=== PATIENT | male | born 1980 | race Caucasian/White ===

== ENCOUNTER 2021-11-23 09:46 | Emergency (ER) | payer BC, SELFPAY ==
--- NOTE | ~2021-11-23 | CT_ITS ---
EXAMINATION: CTA BRAIN/CAROTID DATE: 11/23/2021 12:31 INDICATION: Sudden onset headache TECHNIQUE: Computed tomographic angiography (CTA) of the head and neck was performed with 100 mL Omni paque-350 intravenous contrast. Multiplanar reconstructions and maximum intensity projection 3D-recon structions of the carotid arteries and of the intracranial arteries were created by the technologist on a separate workstation. Automated exposure control and iterative reconstruction technique were emp loyed.The dose-length product was 1070.34 mGy-cm. COMPARISON: None. FINDINGS: Carotid arteries: Visualized thoracic aorta is normal in caliber with no atherosclerotic plaque or dissection. No evide nt plaque along the visualized portion of the great vessels arising from the aortic arch There is no evident plaque with 0% stenosis of the left and right carotid bulbs relative to normal distal artery lumen diameter (NASCET criteria). Cervical soft tissues are unremarkable. Minimal cervical spondylosi s. Intracranial arteries There is no hemodynamically significant stenosis in the vertebral, basilar and internal carotid arter ies. Vertebral arteries are codominant. There is some mild variation in the caliber of the basilar an d intracranial vertebral arteries but without evident plaque or mural thickening and is of doubtful c linical significance. There are no aneurysms or dissection identified. Both A1 and P1 segments are p atent. Cerebral arterial arborization appears symmetric. IMPRESSION: 1. No evident atherosclerotic disease with 0% stenosis of the left and right carotid bulbs relative t o normal distal artery lumen diameter (NASCET criteria). 2. Unremarkable cerebral CT angiogram with no significant stenosis, thrombosis, aneurysm or dissectio n. Reviewed, dictated and finalized at location A. RBOAT OPERATOR IMPRESSION: 1. No evident atherosclerotic disease with 0% stenosis of the left and right ca rotid bulbs relative to normal distal artery lumen diameter (NASCET criteria). 2. Unremarkable cerebral CT angiogram with no significant stenosis, thrombosis, aneurysm or dissection.
--- NOTE | ~2021-11-23 | CT_ITS ---
EXAMINATION: CT brain wo con DATE: 11/23/2021 10:25 INDICATION: Headache. Paresthesias. TECHNIQUE: Computed tomography (CT) of the head was performed without intravenous contrast. Sagittal and coronal reconstructions were performed. The mA was adjusted according to patient size. Iterative reconstruction technique was employed. The dose-length product was 605.30 mGy-cm. COMPARISON: None FINDINGS: No acute intracranial hemorrhage, acute infarction or abnormal extra axial fluid collection. Ventricl es are normal and symmetric. No mass/mass effect. The orbits, paranasal sinuses and mastoid air cells are normal. IMPRESSION: 1. Normal head CT. Reviewed, dictated and finalized at location A. UNICATIONS OFFICER IMPRESSION: 1. Normal head CT.
--- NOTE | ~2021-11-23 | XR_ITS ---
EXAMINATION: XR chest 1V DATE: 11/23/2021 10:33 INDICATION: Cough and headache TECHNIQUE: frontal view of the chest was obtained. COMPARISON: None FINDINGS: The lungs are clear with no focal airspace opacities, pulmonary edema, pleural effusion or pneumothor ax. The cardiomediastinal silhouette is normal. Visualized bones and soft tissues are unremarkable. IMPRESSION: 1. No acute cardiopulmonary disease. Reviewed, dictated and finalized at location A. CORD WEAVER
[2021-11-23 09:54] VITALS: BP 163/98; PULSE 72; RESP 16; TEMP 36.7; O2SAT 97
[2021-11-23 10:12] VITALS: BP 140/103; PULSE 74; RESP 14; O2SAT 97
--- NOTE | 2021-11-23 10:13 | ECG_ITS ---
Measurements Intervals [place] Rate: 66 P: 40 FL: 153 QRS: -14 QRSD: 94 T: 1 QT: 377 QTc: 397 Interpretive Statements SINUS RHYTHM WITH SINUS ARRHYTHMIA BORDERLINE ST-T WAVE ABNORMALITY- INFERIOR LEADS BASELINE ARTIFACT- I, II, III, AVR, AVL, AVF BORDERLINE ECG Electronically Signed On 11-23-2021 12:09:44 TICKET PULLER by Addison Arboleda D.O.
[2021-11-23 10:41] VITALS: BP 131/94; PULSE 64; RESP 18; O2SAT 99
[2021-11-23 10:42] LABS: Glucose Point of Care 73 mg/dl (65-105)
--- NOTE | 2021-11-23 10:43 | ED.HA ---
HPI - Headache General Chief Complaint: Headache <ANA Blela Last Filed: 11/23/21 13:04> Stated Complaint: headache <ANA Bella Last Filed: 11/23/21 13:04> Time Seen by Provider: 11/23/21 10:12 <ANA Bella Last Filed: 11/23/21 13:04> Source: patient <ANA Bella Last Filed: 11/23/21 13:04> Mode of arrival: ambulatory <ANA Bella Last Filed: 11/23/21 13:04> Limitations: no limitations <ANA Bella Last Filed: 11/23/21 13:04> History of Present Illness HPI Narrative: This is a 40 year old male that presents to the ER for headache present since yesterday. Reports he coughed and felt a sharp pain in his headache. He continued to have a headache the rest of the day. He took aspirin with some relief. Does have history of headaches, gets them quite frequently, but this one was worse than usual. Reports today he started to feel better and again coughed and had worsening of headache. Reports he had some paresthesias on the left side of his face yesterday. This has resolved. Reports photophobia. He does report he had a recent exposure to coronavirus. Denies any cold symptoms at this time, reports he has chronic problems with cough, especially in the morning. Denies fever, vomiting, current numbness or weakness. <ANA Bella Last Filed: 11/23/21 13:04> Related Data Home Medications: Home Medications Medication Instructions Recorded Confirmed No Home Medications 11/23/21 11/23/21 <ANA Bella Last Filed: 11/23/21 13:04> Allergies/Adverse Reactions: Allergies Allergy/AdvReac Type Severity Reaction Status Date / Time No Known Allergies Allergy Mild Verified 11/23/21 09:58 <ANA Bella Last Filed: 11/23/21 13:04> Review of Systems Review of Systems: CONSTITUTIONAL: Denies fever EYES: Denies visual changes GASTROINTESTINAL: Denies nausea, vomiting SKIN: Denies rash NEUROLOGIC: Reports headache. Denies numbness, or weakness. <Sabiha Mckeon PA-C - Last Filed: 11/23/21 13:04> All systems reviewed & are unremarkable except as noted in HPI and below <Sabiha Mckeon PA-C - Last Filed: 11/23/21 13:04> [facility] Past Medical History Medical History: Medical History (Updated 11/23/21 @ 13:03 by Sabiha Mckeon PA-C) No active medical problems <Sabiha Mckeon PA-C - Last Filed: 11/23/21 13:04> Family History Family History: Family History (Updated 05/17/16 @ 23:21 by DOCTOR UNKNOWN) Mother Patient's mother is in good health Father Patient's father is in good health <Sabiha Mckeon PA-C - Last Filed: 11/23/21 13:04> Social History Social History: Social History Smoking status: Never smoker Alcohol intake: current <Sabiha Mckeon PA-C - Last Filed: 11/23/21 13:04> Exam Narrative: GENERAL: Well-appearing, well-nourished, and in no acute distress. HEAD: Normocephalic, atraumatic. EYES: PERRLA and EOMI. ENT: Nares clear, no rhinorrhea or epistaxis. Mucous membranes moist. Oropharynx without tonsillar hypertrophy exudate or other lesions. Bilateral TMs pearly white non-bulging NECK: Supple. No adenopathy or masses. CHEST: Clear to auscultation. No respiratory distress. No wheezes rales or rhonchi HEART: Regular rate and rhythm. No murmur heard. Normal peripheral pulses. EXTREMITIES: Normal range of motion. No edema. Strength equal in bilateral upper and lower extremities (5/5) SKIN: Warm, dry, no rash. NEURO: No focal deficits. Alert and oriented x3. Cranial nerves II through XII grossly intact. Normal [id number] PSYCH: Normal mood and affect <Sabiha Mckeon PA-C - Last Filed: 11/23/21 13:04> Course MONKEY KEEPER/PA Physician Supervision I did not see this patient nor was the care plan discussed with me. I was available for evaluation and consultation, I agree with the documentation <Juan Akins MD - Last Filed
[2021-11-23 10:52] LABS: Basophils Percent Auto 0.6 % (0.2-1.2); Eosinophils Absolute Auto 0.2 K/mm3 (0-0.3); Eosinophils Percent Auto 2.4 % (0-4.4); Hemoglobin 17.3 g/dL (14.0-18.0); Immature Granulocyte Absolute 0.01 K/mm3 (0.00-0.031); Immature Granulocyte Percent A 0.1 % (0-0.5); Lymphocytes Absolute Auto 2.47 K/mm3 (0.9-3.2); Lymphocytes Percent Auto 35.3 % (18.3-44.2); Mean Corpuscular HGB Conc 33.3 g/dl (32-36); Mean Corpuscular Hemoglobin 28.7 pg (26-34); Mean Corpuscular Volume 86.2 fl (80-100); Mean Platelet Volume 10.2 fl (7.4-10.4); Monocytes Absolute Auto 0.5 K/mm3 (0.1-0.6); Monocytes Percent Auto 6.9 % (2.6-8.5); Neutrophils Absolute Auto 3.8 K/mm3 (1.3-6.7); Neutrophils Percent Auto 54.7 % (45.5-73.1); Platelet Count Result 235 k/mm3 (150-375); Red Blood Count 6.03 M/mm3 (4.6-6.20); Red Cell Distribution Width 13.1 % (11.5-14.5)
[2021-11-23 10:55] LABS: Alanine Aminotransferase 18 U/L (4-50); Albumin Level 4.9 g/dL (3.5-5.1); Alkaline Phosphatase 66 U/L (38-126); Anion Gap 8 mmol/L (8-16); Aspartate Amino Transferase 23 U/L (17-59); Bilirubin,Total 0.6 mg/dL (0.2-1.3); Blood Urea Nitrogen 19 mg/dL (9-20); Carbon Dioxide 26 mmol/L (22-30); Chloride 104 mmol/L (98-107); Estimated CRCL calculation 79 ml/min; Estimated Glomerular Filt Rate > 60; Glucose 116 mg/dL (65-110); Potassium 3.8 mmol/L (3.4-5.0); Sodium 138 mmol/L (137-145)
[2021-11-23 10:56] LABS: INR 0.9; Partial Thromboplastin Time 28.3 SECONDS (22.3-36.8); Prothrombin Time 12.1 Seconds (11.1-14.7)
[2021-11-23] MEDS: SODIUM CHLORIDE 0.9% IV 500 ML 999 ML IV CONT (10:58)
[2021-11-23] MEDS: METOCLOPRAMIDE HCL INJ 10 MG/2 ML VIAL IV PUSH (10:59)
[2021-11-23] MEDS: diphenhydrAMINE HCl INJ 50 MG/ML VIAL 25 MG IV PUSH (10:59)
[2021-11-23 11:07] LABS: Troponin I < 0.012 ng/mL (0.000-0.034)
[2021-11-23 12:15] VITALS: BP 132/83; PULSE 73; RESP 16; O2SAT 97
[2021-11-23 17:23] LABS: SARS-CoV-2 RNA PCR Negative
== END 2021-11-23 13:18 | disposition home or self-care (01) ==
PROVIDERS: Physician Assistant; Emergency Provider Emergency Medicine
DX: R51.9 Headache, unspecified (principal); Z20.822 Contact with and (suspected) exposure to COVID-19
CPT/HCPCS: 36415; 70450; 70496; 70498; 71045; 80053; 82948; 84484; 85025; 85610; 85730; 93005; 96365; 96375; 99284; C9803; J0131; J1200; J2765; J7040; Q9967; U0003; U0005

== ENCOUNTER 2022-05-06 00:38 | Day surgery (SDC) | payer BC, SELFPAY ==
[2022-05-03 14:39] VITALS: BMI 27.3
[2022-05-06 11:48] VITALS: BP 116/96; PULSE 71; RESP 20; TEMP 36.5; O2SAT 98
[2022-05-06] MEDS: LACTATED RINGERS 1,000 ML 150 ML IV CONT (11:53)
--- NOTE | 2022-05-06 12:24 | P.PNAN_ITS ---
Anes - Initial Pre Proc Eval Procedure: Operation Date: 05/06/22 13:00 Proposed Procedures p Esophagogastroduodenoscopy & Colonoscopy - Mo Cervantes MD s [facility] Hemorrhoid Treatment - Mo Cervantes MD Date/Time: 05/06/22 12:24 Surgeon: Mo Cervantes MD Pre Op Diagnosis: heartburn,vomiting, Rectal bleeding, hemorroids Patient Data Age: 41 Gender: M Height: 1.75 m Weight: 85 kg Last Vital Signs Temp 97.7 F 05/06/22 11:48 Pulse 71 05/06/22 11:48 Resp 20 05/06/22 11:48 BP 116/96 H 05/06/22 11:48 Pulse Ox 98 05/06/22 11:48 O2 Del Method Room Air 05/06/22 11:48 Allergies Allergy/AdvReac Type Severity Reaction Status Date / Time No Known Allergies Allergy Mild Verified 05/06/22 11:47 Home Medications Medication Instructions Recorded Confirmed Type omeprazole 20 mg capsule,delayed 20 mg PO DAILY 02/14/22 05/03/22 History release Patient hx anesthesia problems: none Family hx anesthesia problems: none Results Review: All pre-operative results and documents have been reviewed as part of the pre- operative evaluation. [facility] Past Medical History Medical History (Updated 02/14/22 @ 14:52 by DONN Pritchard) Heartburn No active medical problems Rectal bleeding Family History Family History Mother Patient's mother is in good health Father Patient's father is in good health Social History Social History Smoking status: Never smoker Alcohol intake: current Alcohol use details: occasional Substance use: current Other substance usage details: gummies 4x per week Living arrangements: with family Spiritual care concerns: No Anes - Eval Final PreProcedure Day of Procedure 05/06/22 12:24 Patient weight: normal Heart: regular rate and rhythm Lungs: clear to auscultation Airway: Mallampati scale class II Neurological: alert and oriented Last oral intake: >/= 8 hours ASA classification: II Emergent: no Anesthetic plan: proceed Anesthesia type and monitoring: general GIVS and standard monitoring Results Review: All pre-operative results and documents have been reviewed as part of the pre- operative evaluation. Informed Consent: The patient's anesthetic plan and its attendant risks and benefits were discussed with the patient/family/POA. Questions were solicited and answers provided to the satisfaction of the patient/family/POA.
--- NOTE | 2022-05-06 12:35 | PM.HPGS ---
History of Present Illness History of Present Illness Consent: Risks, benefits, and alternatives have been discussed and questions answered. Patient agrees to proceed with procedure. Chief complaint: heartburn,vomiting, Rectal bleeding, hemorroids Narrative: Chris Kaufman is a 41 year old male with reflux that is better when using omeprazole as needed, also intermittent diarrhea and lately hemorrhoids acting up with some blood after BM, never had scopes. Review of Systems Constitutional: Constitutional: Denies headache(s) and Denies weakness Eyes: Eyes: Denies blurry vision ENT: Reports Normal hearing present, Denies headache(s) and Denies neck pain Cardiovascular: Cardiovascular: Denies chest pain and Denies dyspnea Respiratory: Respiratory: Denies dyspnea Gastrointestinal: Gastrointestinal: Reports no additional gastrointestinal complaints Genitourinary: Genitourinary: Denies dysuria Musculoskeletal: Musculoskeletal: Denies neck pain Integumentary/Breasts: Skin/Breast: Denies dry skin Neurologic: Reports Normal hearing present, Denies headache(s) and Denies weakness Psychiatric: Psychiatric: Denies anxiety Endocrine: Endocrine: Denies change in body appearance Hematologic/Lymphatic: Hematologic/Lymphatic: Denies easy bleeding Allergic/Immunologic: Allergic/Immunologic: Denies urticaria PMFSH Past Medical History Medical History (Updated 05/06/22 @ 12:36 by Mo Cervantes MD) Diarrhea Heartburn No active medical problems Rectal bleeding Family History Family History Mother Patient's mother is in good health Father Patient's father is in good health Social History Social History Smoking status: Never smoker Alcohol intake: current Alcohol use details: occasional Substance use: current Other substance usage details: gummies 4x per week Living arrangements: with family Spiritual care concerns: No Meds Home Medications and Allergies Home Medications Medication Instructions Recorded Confirmed Type omeprazole 20 mg capsule,delayed 20 mg PO DAILY 02/14/22 05/03/22 History release Allergies Allergy/AdvReac Type Severity Reaction Status Date / Time No Known Allergies Allergy Mild Verified 05/06/22 11:47 Vital Signs Vital Signs - 24 hr 05/06/22 11:48 Temperature 97.7 F Pulse Rate 71 Respiratory Rate 20 Blood Pressure 116/96 H Pulse Oximetry 98 Oxygen Delivery Room Air Exam Const: General: comfortable and no acute distress HENMT: General nose exam: Normal nares present Eyes: General: appearance normal, both eyes and all related structures Neck: Neck: no JVD Resp: Auscultation: clear to auscultation bilaterally Cardio: Rate: regular rate Rhythm: regular rhythm GI: Inspection: non-distended GI Palp: Yes Soft to palpation Skin: General skin exam: normal color Neuro: General: gait normal Speech: normal speech Extrem: General: normal to inspection Psych: Mental Status: mental status grossly normal Assessment and Plan Assessment and plan (1) Rectal bleeding: Code(s): K62.5 - Hemorrhage of anus and rectum Status: Acute Assessment and Plan: could be perianal, if hemorrhoids will treat with IRC (2) Heartburn: Code(s): R12 - Heartburn Status: Acute Assessment and Plan: egd with bx using ppi as needed that is helping (3) Diarrhea: Code(s): R19.7 - Diarrhea, unspecified Status: Acute Assessment and Plan: egd and colonoscopy with bx
--- NOTE | 2022-05-06 12:57 | SUR.OPER ---
EGD ENDED AT 1248, COLONOSCOPY BEGAN AT 1253.
[2022-05-06 13:06] VITALS: BP 97/61; PULSE 60; RESP 17; O2SAT 100
--- NOTE | 2022-05-06 13:07 | W.PM.PROC2 ---
Procedure Note - Detailed Date of Procedure 05/06/22 Pre-op Diagnosis Rectal bleeding, hemorroids Post-op Diagnosis Same Procedure Performed IRC of hemorrhoids Surgeon Mo Cervantes MD Indications hemorrhoids Description of Procedure rectal exam revealed grade II hemorrhoids at 4-6 o'clock, then introduced anoscope and advanced IRC probe, hemorrhoids treated 1.5 second each time x6, no complications
[2022-05-06 13:16] VITALS: BP 114/68; PULSE 60; RESP 18; O2SAT 100
--- NOTE | 2022-05-06 13:19 | SUR.OPER ---
COLONOSCOPY ENDED AT 1302, IRC BEGAN AT 1302, IRC ENDED AT 1303.
[2022-05-06 13:26] VITALS: BP 136/75; PULSE 50; RESP 18; O2SAT 100
== END 2022-05-06 13:45 | disposition home or self-care (01) ==
PROVIDERS: PCP Nurse Practitioner Family; Visit Provider Internal Medicine Gastroenterology
PROC: 0DJ08ZZ Inspection of Upper Intestinal Tract, Via Natural or Artificial Opening Endoscopic (ICD-10-PCS; CPT 43235; principal; 2022-05-06 13:00)
PROC: (CPT 46930; 2022-05-06 13:00)
DX: K64.1 Second degree hemorrhoids (principal); D12.4 Benign neoplasm of descending colon; K92.1 Melena; R12 Heartburn; R11.10 Vomiting, unspecified; R19.7 Diarrhea, unspecified
CPT/HCPCS: 46930; 45385; 45380; 87081; 88305; J2704; J7120

== ENCOUNTER → 2023-05-20 12:21 | Outpatient (CLI) | payer BC, SELFPAY ==
--- NOTE | ~2023-05-20 | MR_ITS ---
MRI of the lumbar spine Clinical History: Back pain Technique: Axial T2-weighted images, and sagittal T1-weighted, T2-weighted, and and T2 fat-sat images were acquired. COMPARISON: 08/25/2015 Findings: There is no fracture or subluxation of the lumbar spine. Vertebral bodies maintain normal h eight and alignment. No suspicious bone marrow signal abnormality seen. At L1-L2, L2-L3, L3-L4, there is no disc bulge or herniation. There are minimal facet joint degenerat hipolito changes at these levels. No spinal canal stenosis or neural foraminal narrowing at these levels. At L4-L5, there is moderate to advanced degenerative disc narrowing with mild diffuse disc bulge and moderate facet arthropathy. No central canal stenosis. There is minimal neural foraminal narrowing bi laterally. At L5-S1, there is advanced degenerative disc narrowing. There is mild disc bulge and mild facet arth ropathy. No central canal stenosis or definite neural foraminal narrowing. Paravertebral soft tissues are unremarkable. Impression: Minimal degenerative spondylosis, as above. Reviewed, dictated and finalized at location M. Impression: Minimal degenerative spondylosis, as above.
== END ==
PROVIDERS: PCP Nurse Practitioner Family; Visit Provider Nurse Practitioner Family
DX: M48.062 Spinal stenosis, lumbar region with neurogenic claudication (principal); M54.41 Lumbago with sciatica, right side; M54.42 Lumbago with sciatica, left side; M51.36 Other intervertebral disc degeneration, lumbar region; G89.29 Other chronic pain
CPT/HCPCS: 72148